=== PATIENT | female | born 2000 | race Two or more races ===

== ENCOUNTER 2021-02-22 09:21 | Inpatient (IN) | payer OTHER ==
[~2021-02-22] VITALS: Ht 152.4 cm; Wt 52.6 kg
[2021-02-28] MEDS ORDERED: PRENA1 TRUE CO1 EACH PO (11:45)
== END 2021-03-03 09:19 | disposition home or self-care (01) | DRG 819 ==
LOC: SURH 02-28 10:13 → LDR 02-28 11:25 → SURH 02-28 13:15 → O/R 02-28 17:06 → LDR 02-28 21:55 → OB/GYN 03-01 17:03
PROVIDERS: ADMIT Obstetrics & Gynecology Maternal & Fetal Medicine; ATTEND Obstetrics & Gynecology Maternal & Fetal Medicine
PROC: 4A1HXFZ Monitoring of Products of Conception, Cardiac Rhythm, External Approach (ICD-10-PCS; 2021-02-28)
PROC: 0UVC0ZZ Restriction of Cervix, Open Approach (ICD-10-PCS; principal; 2021-02-28 13:15)
PROC: BU4CZZZ Ultrasonography of Uterus and Ovaries (ICD-10-PCS; 2021-03-01)
DX: O34.31 Maternal care for cervical incompetence, first trimester (principal); Z3A.11 11 weeks gestation of pregnancy; Z20.822 Contact with and (suspected) exposure to COVID-19

== ENCOUNTER 2021-05-31 07:32 | Outpatient (CLI) | payer OTHER ==
[~2021-05-31 07:32] MED LIST: PRENA1 TRUE CO1 EACH PO
== END 2021-05-31 08:32 | disposition home or self-care (01) ==
LOC: NST 07:32
PROVIDERS: ATTEND Obstetrics & Gynecology Maternal & Fetal Medicine
DX: Z34.82 Encounter for supervision of other normal pregnancy, second trimester (principal)

== ENCOUNTER 2021-07-30 10:50 | Outpatient (CLI) | payer OTHER | END 2021-07-30 11:32 | disposition home or self-care (01) | LOC: NST 10:50 | PROVIDERS: ATTEND Obstetrics & Gynecology Maternal & Fetal Medicine | DX: Z34.83 Encounter for supervision of other normal pregnancy, third trimester (principal) ==

== ENCOUNTER 2021-09-03 07:15 | Inpatient (IN) | payer OTHER ==
[~2021-09-03] VITALS: Ht 152.4 cm; Wt 58.5 kg
[2021-09-05] MEDS ORDERED: MAXIMUM D3325 MCG (13:05)
[2021-09-05] MEDS ORDERED: FOLIC ACID0.4 MG (13:05)
[2021-09-05] MEDS ORDERED: PROGESTERONE200 MG (13:05)
== END 2021-09-07 12:17 | disposition home or self-care (01) | DRG 786 ==
LOC: LDR 09-05 07:15 → O/R 09-05 09:02 → LDR 09-05 10:45 → OB/GYN 09-05 20:49
PROVIDERS: ADMIT Obstetrics & Gynecology Maternal & Fetal Medicine; ATTEND Obstetrics & Gynecology Maternal & Fetal Medicine
PROC: 0UCC0ZZ Extirpation of Matter from Cervix, Open Approach (ICD-10-PCS; 2021-09-05)
PROC: 4A1HXFZ Monitoring of Products of Conception, Cardiac Rhythm, External Approach (ICD-10-PCS; 2021-09-05)
PROC: 10D00Z1 Extraction of Products of Conception, Low, Open Approach (ICD-10-PCS; principal; 2021-09-05 10:45)
DX: O65.5 Obstructed labor due to abnormality of maternal pelvic organs (principal); O34.33 Maternal care for cervical incompetence, third trimester; Z3A.39 39 weeks gestation of pregnancy; Z37.0 Single live birth

== ENCOUNTER 2022-07-03 17:00 | Day surgery (SDC) | payer OTHER ==
[~2022-07-03 17:00] MED LIST changes: +FOLIC ACID0.4 MG; +MAXIMUM D3325 MCG; +PROGESTERONE200 MG
== END 2022-07-04 02:10 | disposition home or self-care (01) ==
LOC: CIR.AMB 17:00
PROVIDERS: ATTEND Obstetrics & Gynecology Maternal & Fetal Medicine
DX: O02.1 Missed abortion (principal); Z20.822 Contact with and (suspected) exposure to COVID-19